=== PATIENT | female | born 1960 ===

== ENCOUNTER 2018-11-16 05:23 | Day surgery (SDC) | payer OTHER ==
--- NOTE | 2018-11-15 14:00 | NUR ---
[employer] translation services used to obtained medical history with mail superintendent Valeria ID # [id number].
[2018-11-16] VITALS (15 sets, daily range): BP systolic 122–158; BP diastolic 62–82
[~2018-11-16] VITALS: Ht 152.4 cm; Wt 90.7 kg
[~2018-11-16 05:23] MED LIST: NKM
[2018-11-16 06:10] LABS: BILIRUBIN, URINE NEGATIVE (NEGATIVE); COLOR,URINE PALE YELLOW; GLUCOSE, URINE (UA) NEGATIVE (NEGATIVE); KETONES,URINE NEGATIVE (NEGATIVE); LEUKOCYTE ESTERASE ,URINE 3+ (NEGATIVE); NITRITE,URINE NEGATIVE (NEGATIVE); PH,URINE 5 (4.5-8.0); PROTEIN,URINE NEGATIVE (NEGATIVE); UROBILINOGEN,URINE NORMAL MG/DL (0.0-1.0)
[2018-11-16] MEDS ORDERED: LR 1000ml 1,000 ML IVLG SCH (06:11)
--- NOTE | 2018-11-16 06:12 | Anethesia Preoperative Eval ---
Anesthesia Pre-op PMH/ROS General Date of Evaluation: Nov 16, 2018 Time of Evaluation: 06:54 Anesthesiologist: Parvez ASA Score: ASA 3 Mallampati Score Class I : Soft palate, uvula, fauces, pillars visible Class II: Soft palate, uvula, fauces visible Class III: Soft palate, base of uvula visible Class IV: Only hard plate visible Mallampati Classification: Class II Surgeon: Kerline Diagnosis: Neck Pain Surgical Procedure: ACDF C4-5, C5-6 Family History: no anesthesia problems Allergies: Coded Allergies: No Known Allergies (Unverified , 11/15/18) Medications: see eMAR Patient NPO?: Yes Past Medical History Cardiovascular: Reports: HTN Other: obesity - BMI 37 Anesthesia Pre-op Phys. Exam Physician Exam Vital Signs Date Time Temp Pulse Resp B/P (MAP) Pulse Ox O2 Delivery O2 Flow Rate FiO2 11/16/18 06:11 97.7 67 20 132/69 (90) 100 11/16/18 06:39 Room Air Constitutional: NAD Neurologic: CN 2-12 intact Cardiovascular: RRR Respiratory: CTA Gastrointestinal: S/NT/ND Airway Exam Mallampati Score: Class II MO: full ROM: limited Teeth: missing, intact Anesthesia Pre-op A/P Risk Assessment & Plan Assessment: ASA 3 Plan: GA, SED, GlideScope Go Status Change Before Surgery: No Pre-Antibiotics Dru Grams Ancef IV Given Within 1 Hr of Incision: Yes Time Given: 07:26 eKe Riggs MD Nov 16, 2018 06:12
[2018-11-16] MEDS ORDERED: fentaNYL 100 mcg/2 mL IV PRN (06:15)
[2018-11-16] MEDS ORDERED: HYDROcodone/Acetamin 5/325 tab ORAL PRN (06:15)
[2018-11-16] MEDS ORDERED: LORazepam Inj 2mg/ml 1ml IV PRN (06:15)
[2018-11-16] MEDS ORDERED: HYDROcodone/Acetamin 7.5/325 tab ORAL PRN (06:15)
[2018-11-16] MEDS ORDERED: DiphenhydrAMINE 50mg/ml Inj IVP PRN (06:15)
[2018-11-16] MEDS ORDERED: Midazolam 2mg/2ml Inj IVP PRN (06:15)
[2018-11-16] MEDS ORDERED: Meperidine 50mg/ml Inj(FOR RIGORS ONLY) IVP PRN (06:15)
[2018-11-16] MEDS ORDERED: Ketorolac 30mg Inj IV PRN ×2 (06:15)
[2018-11-16] MEDS ORDERED: Metoclopramide 10mg/2ml Inj IVP PRN (06:15)
[2018-11-16] MEDS ORDERED: Atropine Sulfate 0.4mg/ml inj IVP PRN (06:15)
[2018-11-16] MEDS ORDERED: Hydromorphone 0.5mg/0.5ml inj IVP PRN ×2 (06:15→09:45)
[2018-11-16] MEDS ORDERED: Acetaminophen (Non formulary) 100 ML IV ONE (06:15)
[2018-11-16] MEDS ORDERED: oxyCODONE HCL/Acetaminophen 5/325mg ORAL PRN (06:15)
[2018-11-16] MEDS ORDERED: Labetalol 5mg/ml 20ml vial IV PRN (06:15)
[2018-11-16 06:19] LABS: APPEARANCE,URINE CLOUDY
[2018-11-16] MEDS ORDERED: Gelfoam Size TOPIC ONE (06:24)
[2018-11-16] MEDS ORDERED: Bacitracin 50000 Units Vial ONE (06:24)
[2018-11-16] MEDS ORDERED: Thrombin 5000 units TOPIC ONE (06:24)
[2018-11-16] MEDS ORDERED: Zemuron 50mg/5ml Inj IV ONE (06:35)
[2018-11-16] MEDS ORDERED: Dexamethasone 20mg/5ml ONE (06:45)
[2018-11-16] MEDS ORDERED: Sodium Chloride 10ml vial INJ ONE (06:54)
[2018-11-16] MEDS ORDERED: Dexamethasone 4mg/ml vial ONE (06:54)
[2018-11-16] MEDS ORDERED: Lidocaine 1% MPF 10mg/ml 5ml ONE ×2 (06:54→08:46)
[2018-11-16] MEDS ORDERED: fentaNYL 100 mcg/2 mL IV ONE ×2 (06:54→09:08)
[2018-11-16] MEDS ORDERED: Lidocaine 1% Plain 30 ml INJ ONE (06:58)
[2018-11-16] MEDS ORDERED: Dexamethasone 20mg/5ml IVP ONE (07:00)
[2018-11-16] MEDS ORDERED: Propofol 1,000mg/ 100ml btl IV ONE (07:00)
[2018-11-16] MEDS ORDERED: LR 1000ml ONE (07:00)
[2018-11-16] MEDS ORDERED: Sterile Water Irrig 1000ml IRRIG ONE (07:00)
[2018-11-16] MEDS ORDERED: ceFAZolin sod 1 GM in NS 55 ML IVPB ONE (07:00)
--- NOTE | 2018-11-16 07:01 | Pre-Procedure Note/Attestation ---
Pre-Procedure Note/Attestation Complete Prior to Procedure Planned Procedure: not applicable Procedure Narrative: ACDF C5-C6 with anterior plate fixation Indications for Procedure Pre-Operative Diagnosis: HNP radiculopathy, Neurologic deficit Attestation I attest that I discussed the nature of the procedure; its benefits; risks and complications; and alternatives (and the risks and benefits of such alternatives ), prior to the procedure, with the patient (or the patient's legal home office representative). I attest that, if there was a reasonable possibility of needing a blood transfusion, the patient (or the patient's legal home office representative) was given the [place] [employer] [facility] standardized written summary, pursuant to the Sander Castine Blood Safety Act ([place] Health and Safety Code # 1645, as amended). I attest that I re-evaluated the patient just prior to the surgery and that there has been no change in the patient's H&P, except as documented below: Ernesto Churchill MD Nov 16, 2018 07:01
--- NOTE | 2018-11-16 08:19 | Immediate Post-Op Evaluation ---
Immediate Post-Op Evalulation Immediate Post-Op Evalulation Procedure: ACDF C5-6 Date of Evaluation: Nov 16, 2018 Time of Evaluation: 09:54 IV Fluids: 600 LR Blood Products: 0 Estimated Blood Loss: 30 Urinary Output: 0 Blood Pressure Systolic: 140 Blood Pressure Diastolic: 72 Pulse Rate: 77 Respiratory Rate: 16 O2 Sat by Pulse Oximetry: 100 Temperature (Fahrenheit): 97.6 Pain Score (1-10): 3 Nausea: No Vomiting: No Complications 0 Patient Status: awake, reacts, patent, extubated, none Hydration Status: adequate Dru Grams Ancef IV Given Within 1 Hr of Incision: Yes Time Given: 07:26 Kee Riggs MD Nov 16, 2018 08:19
[2018-11-16] MEDS ORDERED: NS Irrig 1000ml IRRIG ONE (08:43)
[2018-11-16] MEDS ORDERED: Neostigmine 1mg/ml 10ml Inj ONE (09:10)
[2018-11-16] MEDS ORDERED: Glycopyrrolate 0.2mg/ml 1ml Vial ONE (09:10)
--- NOTE | 2018-11-16 09:11 | Brief Operative Note ---
Immediate Post Operative Note Operative Note Pre-op Diagnosis: HNP radiculopathy, Neurologic deficit Procedure: ACDF / Plate C5-C6 Post-op Diagnosis: same as pre-op Findings: consistent w/pre-op dx studies Surgeon: Kerline GILBRET Tool Distributor: Michaela FOLEY Anesthesiologist: Keely GILBERT Anesthesia: general Specimen: yes Complications: none Fluids: anesthesia Estimated Blood Loss: minimal Drains: none Implant(s) used?: Yes Ernesto Churchill MD Nov 16, 2018 09:11
[2018-11-16] MEDS ORDERED: Naloxone 0.4mg/ml Inj IVP PRN (09:15)
--- NOTE | 2018-11-16 10:45 | Diagnostic Imaging Report ---
INDICATION: Pain, intraoperative TECHNIQUE: Intraoperative imaging Fluoroscopy time: 15.8 seconds Total dose: 0.29077 mGym2 Total number of images: 3 COMPARISON: None FINDINGS: Intraoperative images document placement of anterior fusion hardware at C5-6. This appears well aligned. IMPRESSION: Intraoperative imaging, as described
--- NOTE | 2018-11-16 11:00 | NUR ---
NURSE NOTES: REC;D FROM PACU SP ACDF C5-C6. DROWSY BUT ROUSABLE. IV INFUSING/ ANT NECK DRESSING DRY AND INTACT. ICE PACK ON. V/S TAKEN. NO C/O PAIN. NEURO CHECK STABLE. IN NO DISTRESS.
[2018-11-16] MEDS: D5 1/2NS 1,000 ML IV SCH ×2 (11:18→13:00)
[2018-11-16] MEDS ORDERED: Chloraseptic Spray 20mL Bottle ORAL ONE (12:21)
[2018-11-16] MEDS ORDERED: Chloraseptic Spray 20mL Bottle ORAL PRN (12:30)
[2018-11-16] MEDS ORDERED: HYDROcodone/Acetamin 10/325 tab ORAL PRN (12:30)
[2018-11-16] MEDS ORDERED: Hydromorphone 0.5mg/0.5ml inj SUBQ PRN (12:30)
--- NOTE | 2018-11-16 14:00 | NUR ---
NURSE NOTES: AMBULATED OUT IN THE HALLWITH ASSIST TOLERATED. ASSISTED TO THE BATHROOM VOIDED.
[2018-11-16] MEDS ORDERED: ceFAZolin sod 1 GM in D5W 55 ML IV SCH (15:30)
--- NOTE | 2018-11-16 15:33 | NUR ---
P.T Note: late entry 1330 P.T evaluation completed and treatment initiated per spinal protocol. Please refer to P.T evaluation for current functional status. Skilled P.T service is warranted to ensure safety and compliance with spinal precautions in performing functional activities. Pt is limited by dizziness due to anaesthesia still in effect therefore requiring SBA /CGA for bed mobility, transfers and gait/ambulation activities. Pt and educated on spinal precautions and proper body mechanics thru written handout and discussion and return demonstration with present. Pt and able to verbalize understanding and were able to return demonstration. Anticipated D/C later this PM pending voiding and when stable. Spoke with RN in regards to c/o dizziness affecting transfers and ambulation activities. Recommend DC only when dizziness subsided and when stable.
--- NOTE | 2018-11-16 17:49 | NUR ---
NURSE NOTES: ASSISTED OOB, AMBULATED OUT IN THE LOVE.FELT NAUSEATED AND HAD EMESIS OF UNDIGESTED. , MOUTH CARE GIVE. VOIDED. BACK TO BED. GIVEN ZOFRAN 4MG IV ORDERED. WILL MONITOR PT.
[2018-11-16] MEDS ORDERED: D5 1/2NS 1000ml IV ONE (19:19)
--- NOTE | 2018-11-16 19:21 | NUR ---
NURSE NOTES: DISCHARGED HOME PER WHEELCHAIR ACCPD BY IN STABLE CONDITION. PT STATES SHE HAS HOME PAIN MEDICINES PRESCRIBED BY . DC INSTRUCTIONS GIVEN.
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
--- NOTE | 2018-11-17 07:21 | 48 Hour Post Anesthesia Eval ---
Post Anesthesia Evaluation Procedure: ACDF C5-6 Date of Evaluation: Nov 16, 2018 Airway: patent Nausea: No Vomiting: No Hydration Status: adequate Cardiopulmonary Status: at baseline Mental Status/LOC: patient returned to baseline Post-Anesthesia Complications: 0 Follow-up care needed: ready to discharge Conchita Olmedo MD Nov 17, 2018 07:21
--- NOTE | 2018-11-19 12:30 | Operative Note - Dictated ---
DATE OF OPERATION: 11/16/2018 SURGEON: Ernesto Churchill, PhD, M.D. INDUSTRIAL TRACTOR DRIVER: OG Campbell ANESTHESIOLOGIST: Kee Riggs M.D. ANESTHESIA: General with intubation. ESTIMATED BLOOD LOSS: Minimum. COMPLICATIONS: None. POSTOPERATIVE CONDITION: Good/stable. SPECIMEN: Disk fragment C5-C6 to pathology. PROCEDURE: 1. Anterior cervical diskectomy with fusion C5-C6 with anterior internal plate fixation. 2. Placement of osteopromotive material bio-4 with autograft. 3. SSEP and EMG monitoring. 4. Magnification dissection. 5. Intraoperative fluoroscopy interpreted by surgeons. DESCRIPTION OF PROCEDURE: The patient was brought to the operating room and in supine position, general anesthesia with intubation was induced. IV antibiotics, IV Decadron were administered 30 minutes prior to incision time. After appropriate positioning a cross-table imaging was obtained with contralateral to the incision site. Markers placed on the skin without penetration to determine level of incision placement. Level for incision placement with sterile marking pen was placed on the left lateral aspect of the neck. Markers removed. Cervical spine sterilely prepped and draped free in usual sterile fashion. Transverse incisions previously marked left was placed sharply through dermis and epidermis. Electrocautery dissection was carried through the subcutaneous tissue to the level of the platysmas muscle. The muscle was isolated, transected in line with the incision. Blunt dissection high-power magnification was carried medial to the left sternocleidomastoid muscle and carotid sheath through the deep cervical, pretracheal fascia to the midline between the right and left longus colli muscles. A spinal needle that was bent so as to avoid penetration greater than 3 mm into the disk space, placed under high-power magnification/observation into the disk space. A cross-table image was obtained under sterile conditions demonstrating the correct level for further dissection. Level was marked. Needle removed. Retractors placed. Retractors were placed deep to the longus colli muscles were elevated to a maximum of 3 millimeters from the medial lateral extent. Annulotomy was performed followed diskectomy extending laterally to the joint of Luschka. Dissection was carried to the posterior longitudinal ligament. Endplates were denuded of cartilaginous end-plates with maintenance of the integrity of the subchondral bleeding bone. The appropriate trial was placed for determination of lordosis and medial/lateral width as well as height. This was determined under direct observation as well as with fluoroscopic guidance. The appropriate titanium graft lordotic under sterile conditions, was packed with bio-4 with local autograft. Tamped into position with stops noted on the stationary engineer apprentice. Imaging was obtained in the AP and lateral planes demonstrated excellent alignment, placement, and depth. Trial was removed and replaced with the appropriate prosthesis containing the bio-4 as previously noted. AP and lateral radiographs obtained demonstrated excellent alignment and position. A 10 pounds of traction on the neck was removed. Anterior internal plate fixation in a compressive manner with 12 millimeter screws bilateral C5, bilateral C6 were placed locked into position. Final radiographs were obtained and printed in AP and lateral planes. The wound was copiously irrigated with antibiotic-containing saline. Direct observation did not reveal any excoriation or laceration of vital structures. No cerebrospinal fluid leakage noted anytime during the procedure. SSEP EMG monitoring remained stable/normal at all times during the procedure. Inverted interrupted sutures of Vicryl suture material of the platysmas muscle were utilized. Running subcuticular closure of dermis and epidermis followed by surgical strips. Sterile bandage applied and maintained in place with tape. The patient was awakened, extubated in the operating room, and transported to postop recovery in good stable condition. Ernesto Churchill M.D. DR: Roni JOB#: [id number] CC:
== END 2018-11-16 19:20 | disposition home or self-care (01) ==
LOC: SUR 05:23 → EDSEX 07:00 → 3E 10:41
DX: M54.12 Radiculopathy, cervical region (principal); M54.2 Cervicalgia; I10 Essential (primary) hypertension; E66.9 Obesity, unspecified; Z68.39 Body mass index [BMI] 39.0-39.9, adult
CPT/HCPCS: 20936; 22554; 36415; 72040; 76000; 81003; 86850; 86900; 86901; 87081; 87086; 96360; 96365; 97116; 97161; 97530; C1713; J0690; J1100; J2001; J2175; J2250; J2405; J2704; J2710; J2765; J3010; 94003; 94150